=== PATIENT | female | born 1975 | race Caucasian/White ===

== ENCOUNTER 2021-01-30 12:52 | Emergency (ER) | payer SELFPAY ==
--- NOTE | 2021-01-30 17:35 | ER ---
Nurse's Notes [facility] Name: Verito Sanchez Age: 45 yrs Sex: Female : 1975 Arrival Date: 01/30/2021 Time: 12:53 Bed Waiting Private MD: Diagnosis: Presentation: 01/30 12:58 Chief complaint: Patient states: L sided abd pain with N/V/D since Wednesday. No fever. ll1 States her stool is black and her vomit has black in it also. + weakness and muscle aches. Coronavirus screen: Client denies travel out of the [place] in the last 14 days. diarrhea, fatigue, headache, muscle pain, nausea, shortness of breath, vomiting. Client presents with at least one sign or symptom that may indicate coronavirus-19. Standard/surgical mask placed on the client. Ebola Screen: Patient denies travel to an Ebola-affected area in the 21 days before illness onset. Initial Sepsis Screen: Does the patient meet any 2 criteria? No. Patient's initial sepsis screen is negative. Does the patient have a suspected source of infection? Yes: Acute abdominal pain. Risk Assessment: Do you want to hurt yourself or someone else? Patient reports no desire to harm self or others. Onset of symptoms was January 27, 2021. 12:58 Method Of Arrival: Ambulatory ll1 12:58 Acuity: ALE 3 ll1 Historical: - Allergies: 13:02 PENICILLINS; ll1 13:02 Keflex; ll1 - PMHx: 13:02 pseudo seizure, complex PTSD; depression/anxiety; ll1 - PSHx: 13:02 Appendectomy; plate neck; partial hyst, breast augmentation; ll1 - Immunization history:: Client reports receiving the 1st dose of the Covid vaccine, J\T\J-3 weeks ago. Flu vaccine is up to date. - Social history:: Smoking status: Reported history of juuling and/or vaping. Patient/guardian denies using tobacco, Stopped _ months ago 10. Vital Signs: 12:58 BP 133 / 102; Pulse 89; Resp 17; Temp 98.1; Pulse Ox 100% ; Weight 70.31 kg; Height 5 ll1 ft. 7 in. (170.18 cm); Pain 7/10; 12:58 Body Mass Index 24.28 (70.31 kg, 170.18 cm) ll1 ED Course: 12:53 Patient arrived in ED. as 13:01 Triage completed. ll1 13:03 Arm band placed on. ll1 Administered Medications: No medications were administered Outcome: 17:34 Patient left the ED. aa5 Signatures: Ciarra Sheldon Audri RN RN aa5 Hansel Garnett RN RN ll1
[2021-01-30 17:38] VITALS: BP 133/102; TEMP 98.1; O2SAT 100
== END 2021-01-30 17:34 | disposition left against medical advice (07) ==
LOC: ER 12:52
DX: Z53.21 Procedure and treatment not carried out due to patient leaving prior to being seen by health care provider (principal)
CPT/HCPCS: 99281